=== PATIENT | male | born 1950 | race Caucasian/White ===

== ENCOUNTER 2025-04-06 15:49 | Inpatient (IN) | payer MEDICARE ==
[~2025-04-06 15:49] MED LIST: Iopamidol-370 76% 500 ML MDV (1 ML CHARGE) ONE
[2025-04-06 17:07] LABS: #Basophils Less than 0.03 10x3/uL (0.0-0.2); #Eosinophils 0.09 10x3/uL (0.0-0.7); #Monocytes 0.46 10x3/uL (0.11-0.59); #Neutrophils 7.12 10x3/uL (1.40-6.50); %Basophils 0.2 % (0.0-1.0); %Eosinophils 1.0 % (0.0-10.0); %Lymphocytes 14.7 % (21.0-51.0); %Monocytes 5.0 % (0.0-10.0); %Neutrophils 77.9 % (42.0-75.0); Hematocrit 38.2 % (42.0-52.0); Hemoglobin 12.3 g/dL (14.0-18.0); Mean Corpuscular Hemoglobin 28.5 pg (27.0-31.0); Mean Corpuscular Volume 88.6 fL (78.0-98.0); Platelet Count 157 10x3/uL (130-400); Red Blood Cell (RBC) Count 4.31 mill/uL (4.70-6.10); White Blood Cell (WBC) Count 9.14 10x3/uL (4.8-10.8)
[2025-04-06 17:15] LABS: Bacteria/HPF None Seen HPF (None Seen); CAUTI Indications for Culture Pelvic or flank pain; Glucose, Urine (Dipstick) Normal (Negative); Leukocyte Negative Leu/uL (Negative); Protein, Urine (Dipstick) Negative (Neg-Trace); RBC/HPF 0-3 HPF (0-3); Specific Gravity, Urine 1.033 (1.002-1.036); WBC/HPF 0-3 HPF (0-3)
[2025-04-06 17:17] LABS: Urine Culture Reflex No No
[2025-04-06 17:21] LABS: Cocaine Metabolite Screen Negative (Negative); THC/Cannabinoid Screen PRELIM POSITIVE (Negative); Tricyclic Screen Negative (Negative)
[2025-04-06 17:21] LABS: INR-International Normal Ratio 1.1; PTT 31.4 sec (22.9-36.1); Prothrombin Time 14.7 sec (12.0-14.7)
[2025-04-06] MEDS ORDERED: Glucagon 1 MG/ML KIT IM PRN (17:21)
[2025-04-06] MEDS ORDERED: Acetaminophen 325 MG TAB PO PRN (17:21)
[2025-04-06] MEDS ORDERED: Dextrose 50% Abboject 50 ML SYRINGE SLOW IVP PRN (17:21)
[2025-04-06] MEDS ORDERED: Ondansetron PF 4 MG/2 ML Vial ONE (17:29)
[2025-04-06] MEDS ORDERED: Rib Fracture Protocol PO SCH (17:30)
[2025-04-06 17:36] LABS: ALT (SGPT) 12 U/L (Less than 45); AST (SGOT) 35 U/L (11-34); Albumin 2.9 g/dL (3.1-4.5); Alkaline Phosphatase 70 U/L (40-110); Anion Gap 16 mmol/L (10-20); BUN (Urea Nitrogen) 24 mg/dL (8.4-25.7); Bilirubin, Total 0.4 mg/dL (0.3-1.2); Calc. Creatinine Clearance 0 mL/min (70-130); Calcium 8.5 mg/dL (7.8-10.44); Carbon Dioxide 19 mmol/L (23-31); Chloride 108 mmol/L (98-107); Globulin 3.3 g/dL (2.4-3.5); Glucose 129 mg/dL (83-110); Lipase 24 U/L (8-78); Potassium 4.7 mmol/L (3.5-5.1); Sodium 138 mmol/L (136-145)
[2025-04-06] MEDS: Acetaminophen 500 MG TAB PO SCH (19:35)
[2025-04-06] MEDS: Gabapentin 100 MG CAP PO SCH (20:54)
[2025-04-06] MEDS: Enoxaparin 40 MG (0.4 mL) SYRINGE SC SCH (20:54)
[2025-04-06] MEDS: Ibuprofen 200 MG TAB PO SCH (20:55)
[2025-04-07] MEDS: Famotidine 20 MG TAB PO SCH (01:33)
[2025-04-07 01:56] VITALS: BMI 25.7
[2025-04-07 05:15] LABS: #Basophils Less than 0.03 10x3/uL (0.0-0.2); #Eosinophils Less than 0.03 10x3/uL (0.0-0.7); #Monocytes 0.57 10x3/uL (0.11-0.59); #Neutrophils 5.40 10x3/uL (1.40-6.50); %Basophils 0.1 % (0.0-1.0); %Eosinophils 0.1 % (0.0-10.0); %Lymphocytes 10.0 % (21.0-51.0); %Monocytes 8.5 % (0.0-10.0); %Neutrophils 80.7 % (42.0-75.0); Hematocrit 36.2 % (42.0-52.0); Hemoglobin 11.6 g/dL (14.0-18.0); Mean Corpuscular Hemoglobin 29.0 pg (27.0-31.0); Mean Corpuscular Volume 90.5 fL (78.0-98.0); Platelet Count 145 10x3/uL (130-400); Red Blood Cell (RBC) Count 4.00 mill/uL (4.70-6.10); White Blood Cell (WBC) Count 6.70 10x3/uL (4.8-10.8)
[2025-04-07 05:29] LABS: Anion Gap 15 mmol/L (10-20); BUN (Urea Nitrogen) 24 mg/dL (8.4-25.7); Calc. Creatinine Clearance 54 mL/min (70-130); Calcium 8.4 mg/dL (7.8-10.44); Carbon Dioxide 17 mmol/L (23-31); Chloride 111 mmol/L (98-107); Glucose 167 mg/dL (83-110); Potassium 4.6 mmol/L (3.5-5.1); Sodium 138 mmol/L (136-145)
[2025-04-07] MEDS: Cyclobenzaprine 10 MG TAB PO PRN (08:53)
[2025-04-07] MEDS: Ondansetron PF 4 MG/2 ML Vial IVP PRN (10:33)
[2025-04-07] MEDS ORDERED: Iopamidol-370 76% 500 ML MDV (1 ML CHARGE) ONE (11:15)
[2025-04-07] MEDS ORDERED: Rocuronium Bromide 10 MG/ML (10ML VIAL) ONE (15:07)
[2025-04-07] MEDS ORDERED: Ondansetron PF 4 MG/2 ML Vial ONE (15:07)
[2025-04-07] MEDS ORDERED: CEFAZOLIN 2 GM VIAL ONE (15:14)
[2025-04-07] MEDS ORDERED: fentaNYL PF 100 MCG/2 ML SYRINGE ONE (15:54)
[2025-04-07] MEDS ORDERED: Etomidate 40 MG (20 mL) VIAL ONE (16:41)
[2025-04-07] MEDS ORDERED: Ketamine In 0.9 % NaCl 50 MG/5 ML SYRINGE ONE (16:41)
[2025-04-07] MEDS ORDERED: PHENYLEPHRINE-NS 100 MCG/ML 10 ML SYRINGE ONE (17:18)
[2025-04-07] MEDS ORDERED: Phenylephrine 40 MG/NS 250 ML 250 ML ONE (18:04)
[2025-04-07] MEDS ORDERED: SUGAMMADEX SODIUM 200 MG/2 ML VIAL ONE (20:14)
[2025-04-07] MEDS ORDERED: diphenhydrAMINE 50 MG/ML VIAL IM PRN (20:31)
[2025-04-07] MEDS ORDERED: Ondansetron PF 4 MG/2 ML Vial IVP PRN (20:31)
[2025-04-07] MEDS ORDERED: diphenhydrAMINE 25 MG CAP PO PRN (20:31)
[2025-04-07] MEDS ORDERED: diphenhydrAMINE 50 MG/ML VIAL IVP PRN (20:31)
[2025-04-07] MEDS ORDERED: fentaNYL Citrate/PF 55 ML IV SCH (20:45)
[2025-04-07] MEDS ORDERED: Communication Order-Pharmacy FS SCH (20:45)
[2025-04-08 04:50] LABS: #Basophils Less than 0.03 10x3/uL (0.0-0.2); #Eosinophils Less than 0.03 10x3/uL (0.0-0.7); #Monocytes 0.69 10x3/uL (0.11-0.59); #Neutrophils 6.14 10x3/uL (1.40-6.50); %Basophils 0.1 % (0.0-1.0); %Eosinophils 0.0 % (0.0-10.0); %Lymphocytes 6.9 % (21.0-51.0); %Monocytes 9.3 % (0.0-10.0); %Neutrophils 83.3 % (42.0-75.0); Hematocrit 34.0 % (42.0-52.0); Hemoglobin 10.5 g/dL (14.0-18.0); Mean Corpuscular Hemoglobin 28.8 pg (27.0-31.0); Mean Corpuscular Volume 93.2 fL (78.0-98.0); Platelet Count 123 10x3/uL (130-400); Red Blood Cell (RBC) Count 3.65 mill/uL (4.70-6.10); White Blood Cell (WBC) Count 7.38 10x3/uL (4.8-10.8)
[2025-04-08 05:03] LABS: Anion Gap 16 mmol/L (10-20); BUN (Urea Nitrogen) 24 mg/dL (8.4-25.7); Calc. Creatinine Clearance 45 mL/min (70-130); Calcium 8.3 mg/dL (7.8-10.44); Carbon Dioxide 15 mmol/L (23-31); Chloride 113 mmol/L (98-107); Glucose 143 mg/dL (83-110); Potassium 4.6 mmol/L (3.5-5.1); Sodium 139 mmol/L (136-145)
[2025-04-08 05:31] LABS: Platelet Adequacy Comment Platelets Decreased; RBC Morphology Within Normal Limits; Smudge Cells 5.9 %
[2025-04-08] MEDS ORDERED: Aspirin 81 mg Enteric Coated Tablet PO SCH (09:00)
[2025-04-08] MEDS: Lactulose 20 GM (30 mL) UDCUP PO SCH (09:49)
[2025-04-09 05:10] LABS: #Basophils Less than 0.03 10x3/uL (0.0-0.2); #Eosinophils 0.12 10x3/uL (0.0-0.7); #Monocytes 0.48 10x3/uL (0.11-0.59); #Neutrophils 2.06 10x3/uL (1.40-6.50); %Basophils 0.3 % (0.0-1.0); %Eosinophils 3.7 % (0.0-10.0); %Lymphocytes 16.2 % (21.0-51.0); %Monocytes 15.0 % (0.0-10.0); %Neutrophils 64.2 % (42.0-75.0); Hematocrit 25.7 % (42.0-52.0); Hemoglobin 7.8 g/dL (14.0-18.0); Mean Corpuscular Hemoglobin 28.4 pg (27.0-31.0); Mean Corpuscular Volume 93.5 fL (78.0-98.0); Platelet Count 94 10x3/uL (130-400); Red Blood Cell (RBC) Count 2.75 mill/uL (4.70-6.10); White Blood Cell (WBC) Count 3.21 10x3/uL (4.8-10.8)
[2025-04-09 05:30] LABS: Anion Gap 10 mmol/L (10-20); BUN (Urea Nitrogen) 21 mg/dL (8.4-25.7); Calc. Creatinine Clearance 51 mL/min (70-130); Calcium 7.9 mg/dL (7.8-10.44); Carbon Dioxide 18 mmol/L (23-31); Chloride 117 mmol/L (98-107); Glucose 86 mg/dL (83-110); Potassium 4.1 mmol/L (3.5-5.1); Sodium 141 mmol/L (136-145)
[2025-04-09] MEDS: PNEUMOC 20-VAL CONJ-DIP CRM/PF 0.5 ML SYRINGE IM ONE (08:27)
[2025-04-09] MEDS: TETANUS, DIPHTHERIA TOX,ADULT (TDVAX) 0.5 ML VIAL IM ONE (08:36)
[2025-04-09 12:42] LABS: #Basophils Less than 0.03 10x3/uL (0.0-0.2); #Eosinophils 0.18 10x3/uL (0.0-0.7); #Monocytes 0.47 10x3/uL (0.11-0.59); #Neutrophils 2.48 10x3/uL (1.40-6.50); %Basophils 0.5 % (0.0-1.0); %Eosinophils 4.9 % (0.0-10.0); %Lymphocytes 13.6 % (21.0-51.0); %Monocytes 12.8 % (0.0-10.0); %Neutrophils 67.7 % (42.0-75.0); Hematocrit 23.5 % (42.0-52.0); Hemoglobin 7.3 g/dL (14.0-18.0); Mean Corpuscular Hemoglobin 28.6 pg (27.0-31.0); Mean Corpuscular Volume 92.2 fL (78.0-98.0); Platelet Count 103 10x3/uL (130-400); Red Blood Cell (RBC) Count 2.55 mill/uL (4.70-6.10); White Blood Cell (WBC) Count 3.67 10x3/uL (4.8-10.8)
[2025-04-10 06:54] LABS: #Basophils Less than 0.03 10x3/uL (0.0-0.2); #Eosinophils 0.14 10x3/uL (0.0-0.7); #Monocytes 0.45 10x3/uL (0.11-0.59); #Neutrophils 3.72 10x3/uL (1.40-6.50); %Basophils 0.4 % (0.0-1.0); %Eosinophils 2.8 % (0.0-10.0); %Lymphocytes 13.6 % (21.0-51.0); %Monocytes 8.9 % (0.0-10.0); %Neutrophils 73.5 % (42.0-75.0); Hematocrit 25.1 % (42.0-52.0); Hemoglobin 7.7 g/dL (14.0-18.0); Mean Corpuscular Hemoglobin 28.4 pg (27.0-31.0); Mean Corpuscular Volume 92.6 fL (78.0-98.0); Platelet Count 138 10x3/uL (130-400); Red Blood Cell (RBC) Count 2.71 mill/uL (4.70-6.10); White Blood Cell (WBC) Count 5.06 10x3/uL (4.8-10.8)
[2025-04-10 07:05] LABS: Anion Gap 9 mmol/L (10-20); BUN (Urea Nitrogen) 16 mg/dL (8.4-25.7); Calc. Creatinine Clearance 64 mL/min (70-130); Calcium 8.0 mg/dL (7.8-10.44); Carbon Dioxide 17 mmol/L (23-31); Chloride 119 mmol/L (98-107); Glucose 88 mg/dL (83-110); Potassium 4.0 mmol/L (3.5-5.1); Sodium 141 mmol/L (136-145)
[2025-04-10] MEDS ORDERED: HYDROcodone/Acetaminophen 5/325 mg Tablet PO PRN (08:37)
[2025-04-10] MEDS ORDERED: Calcium Carbonate 500 MG ChewTAB PO PRN (08:49)
[2025-04-10] MEDS: Senokot S 8.6-50 MG TAB PO SCH (09:44)
[2025-04-10] MEDS: Pantoprazole 40 MG DR.TAB PO SCH (09:44)
[2025-04-10] MEDS ORDERED: Iopamidol-370 76% 500 ML MDV (1 ML CHARGE) ONE (11:51)
[2025-04-10] MEDS: Gabapentin 300 MG CAP PO SCH (14:31)
[2025-04-10] MEDS: Furosemide 20 MG (2 mL) VIAL SLOW IVP SCH (15:21)
[2025-04-10] MEDS: Lactulose 20 GM (30 mL) UDCUP PO SCH ×2 (15:21→20:49)
[2025-04-10] MEDS: Methocarbamol 500 MG TAB PO PRN (17:17)
[2025-04-10] MEDS: HYDROcodone/Acetaminophen 5/325 mg Tablet PO PRN (17:17)
[2025-04-11] MEDS: Transdermal Patch Removal LIDOCAINE TOP SCH (02:21)
[2025-04-11 06:56] LABS: #Basophils Less than 0.03 10x3/uL (0.0-0.2); #Eosinophils 0.08 10x3/uL (0.0-0.7); #Monocytes 0.44 10x3/uL (0.11-0.59); #Neutrophils 3.10 10x3/uL (1.40-6.50); %Basophils 0.5 % (0.0-1.0); %Eosinophils 1.8 % (0.0-10.0); %Lymphocytes 17.0 % (21.0-51.0); %Monocytes 10.0 % (0.0-10.0); %Neutrophils 70.0 % (42.0-75.0); Hematocrit 21.8 % (42.0-52.0); Hemoglobin 7.1 g/dL (14.0-18.0); Mean Corpuscular Hemoglobin 29.0 pg (27.0-31.0); Mean Corpuscular Volume 89.0 fL (78.0-98.0); Platelet Count 153 10x3/uL (130-400); Red Blood Cell (RBC) Count 2.45 mill/uL (4.70-6.10); White Blood Cell (WBC) Count 4.42 10x3/uL (4.8-10.8)
[2025-04-11 07:12] LABS: Anion Gap 16 mmol/L (10-20); BUN (Urea Nitrogen) 22 mg/dL (8.4-25.7); Calc. Creatinine Clearance 42 mL/min (70-130); Calcium 8.5 mg/dL (7.8-10.44); Carbon Dioxide 15 mmol/L (23-31); Chloride 116 mmol/L (98-107); Glucose 117 mg/dL (83-110); Magnesium 1.9 mg/dL (1.6-2.6); Potassium 3.9 mmol/L (3.5-5.1); Sodium 143 mmol/L (136-145)
[2025-04-11] MEDS: Furosemide 20 MG (2 mL) VIAL SLOW IVP SCH (08:20)
[2025-04-11 11:28] LABS: #Basophils 0.03 10x3/uL (0.0-0.2); #Eosinophils 0.12 10x3/uL (0.0-0.7); #Monocytes 0.39 10x3/uL (0.11-0.59); #Neutrophils 3.42 10x3/uL (1.40-6.50); %Basophils 0.7 % (0.0-1.0); %Eosinophils 2.6 % (0.0-10.0); %Lymphocytes 13.2 % (21.0-51.0); %Monocytes 8.5 % (0.0-10.0); %Neutrophils 74.1 % (42.0-75.0); Hematocrit 21.9 % (42.0-52.0); Hemoglobin 7.1 g/dL (14.0-18.0); Mean Corpuscular Hemoglobin 29.0 pg (27.0-31.0); Mean Corpuscular Volume 89.4 fL (78.0-98.0); Platelet Count 173 10x3/uL (130-400); Red Blood Cell (RBC) Count 2.45 mill/uL (4.70-6.10); White Blood Cell (WBC) Count 4.61 10x3/uL (4.8-10.8)
[2025-04-11] MEDS ORDERED: Furosemide 20 MG (2 mL) VIAL SLOW IVP SCH (14:00)
[2025-04-11 19:55] LABS: Hematocrit 26.7 % (42.0-52.0); Hemoglobin 8.4 g/dL (14.0-18.0)
[2025-04-12 03:53] LABS: #Basophils Less than 0.03 10x3/uL (0.0-0.2); #Eosinophils 0.30 10x3/uL (0.0-0.7); #Monocytes 0.40 10x3/uL (0.11-0.59); #Neutrophils 2.37 10x3/uL (1.40-6.50); %Basophils 0.5 % (0.0-1.0); %Eosinophils 7.8 % (0.0-10.0); %Lymphocytes 16.7 % (21.0-51.0); %Monocytes 10.4 % (0.0-10.0); %Neutrophils 61.7 % (42.0-75.0); Hematocrit 24.4 % (42.0-52.0); Hemoglobin 8.0 g/dL (14.0-18.0); Mean Corpuscular Hemoglobin 28.8 pg (27.0-31.0); Mean Corpuscular Volume 87.8 fL (78.0-98.0); Platelet Count 177 10x3/uL (130-400); Red Blood Cell (RBC) Count 2.78 mill/uL (4.70-6.10); White Blood Cell (WBC) Count 3.84 10x3/uL (4.8-10.8)
[2025-04-12 04:14] LABS: Anion Gap 11 mmol/L (10-20); BUN (Urea Nitrogen) 18 mg/dL (8.4-25.7); Calc. Creatinine Clearance 53 mL/min (70-130); Calcium 8.3 mg/dL (7.8-10.44); Carbon Dioxide 18 mmol/L (23-31); Chloride 114 mmol/L (98-107); Glucose 109 mg/dL (83-110); Potassium 3.7 mmol/L (3.5-5.1); Sodium 139 mmol/L (136-145)
[2025-04-12] MEDS: Heparin 5,000 UNITS/ML VIAL SC SCH (09:36)
[2025-04-13 05:24] LABS: #Basophils Less than 0.03 10x3/uL (0.0-0.2); #Eosinophils 0.22 10x3/uL (0.0-0.7); #Monocytes 0.48 10x3/uL (0.11-0.59); #Neutrophils 2.76 10x3/uL (1.40-6.50); %Basophils 0.5 % (0.0-1.0); %Eosinophils 5.1 % (0.0-10.0); %Lymphocytes 14.9 % (21.0-51.0); %Monocytes 11.2 % (0.0-10.0); %Neutrophils 64.1 % (42.0-75.0); Hematocrit 23.9 % (42.0-52.0); Hemoglobin 7.9 g/dL (14.0-18.0); Mean Corpuscular Hemoglobin 28.9 pg (27.0-31.0); Mean Corpuscular Volume 87.5 fL (78.0-98.0); Platelet Count 205 10x3/uL (130-400); Red Blood Cell (RBC) Count 2.73 mill/uL (4.70-6.10); White Blood Cell (WBC) Count 4.30 10x3/uL (4.8-10.8)
[2025-04-13 05:34] LABS: Anion Gap 12 mmol/L (10-20); BUN (Urea Nitrogen) 17 mg/dL (8.4-25.7); Calc. Creatinine Clearance 65 mL/min (70-130); Calcium 8.2 mg/dL (7.8-10.44); Carbon Dioxide 17 mmol/L (23-31); Chloride 113 mmol/L (98-107); Glucose 104 mg/dL (83-110); Potassium 3.7 mmol/L (3.5-5.1); Sodium 138 mmol/L (136-145)
[2025-04-13 14:02] VITALS: BMI 28.8
[2025-04-13 16:49] VITALS: BP 157/89; TEMP 98.1
== END 2025-04-13 18:20 | DRG 492 ==
LOC: ERS 15:49 → SURG A 17:27
PROVIDERS: ADMIT Colon & Rectal Surgery; ATTEND Colon & Rectal Surgery
PROC: 0QSK04Z Reposition Left Fibula with Internal Fixation Device, Open Approach (ICD-10-PCS; principal; 2025-04-08)
PROC: 0SRS0JZ Replacement of Left Hip Joint, Femoral Surface with Synthetic Substitute, Open Approach (ICD-10-PCS; 2025-04-08)
PROC: 0QS7XZZ Reposition Left Upper Femur, External Approach (ICD-10-PCS; 2025-04-08)
PROC: 30233N1 Transfusion of Nonautologous Red Blood Cells into Peripheral Vein, Percutaneous Approach (ICD-10-PCS; 2025-04-08)
DX: S82.842A Displaced bimalleolar fracture of left lower leg, initial encounter for closed fracture (principal); J96.01 Acute respiratory failure with hypoxia; S72.092A Other fracture of head and neck of left femur, initial encounter for closed fracture; S22.42XA Multiple fractures of ribs, left side, initial encounter for closed fracture; S22.040A Wedge compression fracture of fourth thoracic vertebra, initial encounter for closed fracture; S22.050A Wedge compression fracture of T5-T6 vertebra, initial encounter for closed fracture; S22.060A Wedge compression fracture of T7-T8 vertebra, initial encounter for closed fracture; D62 Acute posthemorrhagic anemia; K59.00 Constipation, unspecified; E27.9 Disorder of adrenal gland, unspecified; N28.9 Disorder of kidney and ureter, unspecified; F12.90 Cannabis use, unspecified, uncomplicated; V89.0XXA Person injured in unspecified motor-vehicle accident, nontraffic, initial encounter; S62.292A Other fracture of first metacarpal bone, left hand, initial encounter for closed fracture; I77.1 Stricture of artery; I10 Essential (primary) hypertension
CPT/HCPCS: 27762; 27788; 27810; 36415; 36430; 51701; 70450; 71045; 71260; 71275; 72125; 72170; 74177; 75635; 80048; 80053; 80306; 80307; 81001; 83036; 83690; 83735; 83880; 85025; 85610; 85730; 86850; 86900; 86901; 90471; 90715; 93005; 93306; 94640; 94760; 96374; 96375; 99292; C1713; C1776; G0390; J1100; J1644; J1650; J1940; J2270; J2405; J3490; J7030; P9016; Q9967

== ENCOUNTER 2025-05-17 18:16 | Inpatient (IN) | payer MEDICARE ==
[2025-05-17 19:16] LABS: #Basophils Less than 0.03 10x3/uL (0.0-0.2); #Eosinophils Less than 0.03 10x3/uL (0.0-0.7); #Monocytes 0.67 10x3/uL (0.11-0.59); #Neutrophils 8.89 10x3/uL (1.40-6.50); %Basophils 0.2 % (0.0-1.0); %Eosinophils 0.1 % (0.0-10.0); %Lymphocytes 14.0 % (21.0-51.0); %Monocytes 6.0 % (0.0-10.0); %Neutrophils 79.2 % (42.0-75.0); Hematocrit 33.5 % (42.0-52.0); Hemoglobin 10.9 g/dL (14.0-18.0); Mean Corpuscular Hemoglobin 28.4 pg (27.0-31.0); Mean Corpuscular Volume 87.2 fL (78.0-98.0); Platelet Count 185 10x3/uL (130-400); Red Blood Cell (RBC) Count 3.84 mill/uL (4.70-6.10); White Blood Cell (WBC) Count 11.22 10x3/uL (4.8-10.8)
[2025-05-17 19:56] LABS: ALT (SGPT) 16 U/L (Less than 45); AST (SGOT) 28 U/L (11-34); Albumin 2.9 g/dL (3.1-4.5); Alkaline Phosphatase 113 U/L (40-110); Anion Gap 17 mmol/L (10-20); BUN (Urea Nitrogen) 37 mg/dL (8.4-25.7); Bilirubin, Total 0.5 mg/dL (0.3-1.2); Calc. Creatinine Clearance 0 mL/min (70-130); Calcium 9.8 mg/dL (7.8-10.44); Carbon Dioxide 24 mmol/L (23-31); Chloride 99 mmol/L (98-107); Globulin 3.8 g/dL (2.4-3.5); Glucose 112 mg/dL (83-110); Potassium 4.6 mmol/L (3.5-5.1); Sodium 135 mmol/L (136-145)
[2025-05-17] MEDS ORDERED: Cefepime 2 GM VIAL ONE (20:06)
[2025-05-17] MEDS ORDERED: Ondansetron PF 4 MG/2 ML Vial ONE (20:06)
[2025-05-18 00:16] VITALS: BMI 27.4
[2025-05-18] MEDS ORDERED: Ondansetron PF 4 MG/2 ML Vial IVP PRN (01:00)
[2025-05-18] MEDS ORDERED: Bisacodyl 10 MG SUPP PR PRN (01:06)
[2025-05-18] MEDS ORDERED: Melatonin 3 MG TAB PO PRN (01:06)
[2025-05-18] MEDS ORDERED: Guaifenesin DM 100-10/5 ML UDCUP PO PRN (01:06)
[2025-05-18] MEDS ORDERED: Senokot S 8.6-50 MG TAB PO PRN (01:06)
[2025-05-18] MEDS ORDERED: Electrolyte Replacement Protocol 1 EACH FS SCH (01:15)
[2025-05-18] MEDS ORDERED: PHOS-NAK 1 PKT PACK PO PRN (01:30)
[2025-05-18] MEDS ORDERED: Potassium Chloride 20 MEQ in Premix 1 BAG IVPB PRN (01:30)
[2025-05-18] MEDS: cefTRIAXone\\ROCEPHIN 1 GM in Sodium Chloride 0.9% 100 ML IVPB SCH (05:07)
[2025-05-18 05:13] LABS: #Basophils Less than 0.03 10x3/uL (0.0-0.2); #Eosinophils Less than 0.03 10x3/uL (0.0-0.7); #Monocytes 0.50 10x3/uL (0.11-0.59); #Neutrophils 4.55 10x3/uL (1.40-6.50); %Basophils 0.2 % (0.0-1.0); %Eosinophils 0.2 % (0.0-10.0); %Lymphocytes 9.4 % (21.0-51.0); %Monocytes 8.9 % (0.0-10.0); %Neutrophils 80.8 % (42.0-75.0); Hematocrit 26.2 % (42.0-52.0); Hemoglobin 8.2 g/dL (14.0-18.0); Mean Corpuscular Hemoglobin 28.4 pg (27.0-31.0); Mean Corpuscular Volume 90.7 fL (78.0-98.0); Platelet Count 126 10x3/uL (130-400); Red Blood Cell (RBC) Count 2.89 mill/uL (4.70-6.10); White Blood Cell (WBC) Count 5.63 10x3/uL (4.8-10.8)
[2025-05-18] MEDS: Acetaminophen 325 MG TAB PO PRN (05:43)
[2025-05-18 06:00] LABS: ALT (SGPT) 11 U/L (Less than 45); AST (SGOT) 19 U/L (11-34); Albumin 2.1 g/dL (3.1-4.5); Alkaline Phosphatase 80 U/L (40-110); Anion Gap 8 mmol/L (10-20); BUN (Urea Nitrogen) 37 mg/dL (8.4-25.7); Bilirubin, Total 0.3 mg/dL (0.3-1.2); Calc. Creatinine Clearance 30 mL/min (70-130); Calcium 8.3 mg/dL (7.8-10.44); Carbon Dioxide 20 mmol/L (23-31); Chloride 110 mmol/L (98-107); Globulin 2.9 g/dL (2.4-3.5); Glucose 119 mg/dL (83-110); Magnesium 1.7 mg/dL (1.6-2.6); Potassium 4.3 mmol/L (3.5-5.1); Sodium 134 mmol/L (136-145)
[2025-05-18] MEDS: Azithromycin 250 MG TAB PO SCH (08:24)
[2025-05-18] MEDS: Heparin 5,000 UNITS/ML VIAL SC SCH (08:24)
[2025-05-18] MEDS ORDERED: Enoxaparin 40 MG (0.4 mL) SYRINGE SC SCH (09:00)
[2025-05-18] MEDS ORDERED: FLU (Fluad Triv) 25-26 (65UP)PF 45 MCG/0.5 ML Syringe IM ONE (09:00)
[2025-05-18] MEDS ORDERED: PNEUMOC 20-VAL CONJ-DIP CRM/PF 0.5 ML SYRINGE IM ONE (09:00)
[2025-05-18] MEDS ORDERED: HYDROcodone/Acetaminophen 10/325 mg Tablet PO PRN (14:27)
[2025-05-18] MEDS: HYDROcodone/Acetaminophen 5/325 mg Tablet PO PRN (15:17)
[2025-05-18] MEDS ORDERED: Methocarbamol 500 MG TAB PO PRN (15:57)
[2025-05-18] MEDS: Gabapentin 300 MG CAP PO SCH (21:03)
[2025-05-18] MEDS: VANCOMYCIN 1.75 GM/350 ML Premix BAG IVPB SCH (23:48)
[2025-05-19 04:58] LABS: Anion Gap 10 mmol/L (10-20); BUN (Urea Nitrogen) 32 mg/dL (8.4-25.7); Calc. Creatinine Clearance 34 mL/min (70-130); Calcium 8.1 mg/dL (7.8-10.44); Carbon Dioxide 16 mmol/L (23-31); Chloride 112 mmol/L (98-107); Glucose 82 mg/dL (83-110); Potassium 4.1 mmol/L (3.5-5.1); Sodium 134 mmol/L (136-145)
[2025-05-19 08:19] LABS: #Basophils Less than 0.03 10x3/uL (0.0-0.2); #Eosinophils 0.06 10x3/uL (0.0-0.7); #Monocytes 0.28 10x3/uL (0.11-0.59); #Neutrophils 2.30 10x3/uL (1.40-6.50); %Basophils 0.3 % (0.0-1.0); %Eosinophils 1.9 % (0.0-10.0); %Lymphocytes 17.3 % (21.0-51.0); %Monocytes 8.6 % (0.0-10.0); %Neutrophils 71.0 % (42.0-75.0); Hematocrit 25.7 % (42.0-52.0); Hemoglobin 8.1 g/dL (14.0-18.0); Mean Corpuscular Hemoglobin 28.4 pg (27.0-31.0); Mean Corpuscular Volume 90.2 fL (78.0-98.0); Platelet Count 128 10x3/uL (130-400); Red Blood Cell (RBC) Count 2.85 mill/uL (4.70-6.10); White Blood Cell (WBC) Count 3.24 10x3/uL (4.8-10.8)
[2025-05-19 15:55] LABS: Legionella Urinary Ag Negative (Negative)
[2025-05-20 04:43] LABS: #Basophils 0.03 10x3/uL (0.0-0.2); #Eosinophils 0.14 10x3/uL (0.0-0.7); #Monocytes 0.42 10x3/uL (0.11-0.59); #Neutrophils 2.36 10x3/uL (1.40-6.50); %Basophils 0.7 % (0.0-1.0); %Eosinophils 3.3 % (0.0-10.0); %Lymphocytes 28.9 % (21.0-51.0); %Monocytes 10.0 % (0.0-10.0); %Neutrophils 56.4 % (42.0-75.0); Hematocrit 29.0 % (42.0-52.0); Hemoglobin 8.7 g/dL (14.0-18.0); Mean Corpuscular Hemoglobin 27.8 pg (27.0-31.0); Mean Corpuscular Volume 92.7 fL (78.0-98.0); Platelet Count 150 10x3/uL (130-400); Red Blood Cell (RBC) Count 3.13 mill/uL (4.70-6.10); White Blood Cell (WBC) Count 4.19 10x3/uL (4.8-10.8)
[2025-05-20 05:09] LABS: Anion Gap 11 mmol/L (10-20); BUN (Urea Nitrogen) 27 mg/dL (8.4-25.7); Calc. Creatinine Clearance 37 mL/min (70-130); Calcium 8.2 mg/dL (7.8-10.44); Carbon Dioxide 18 mmol/L (23-31); Chloride 110 mmol/L (98-107); Glucose 94 mg/dL (83-110); Potassium 4.2 mmol/L (3.5-5.1); Sodium 135 mmol/L (136-145)
[2025-05-20] MEDS: Acetaminophen 500 MG TAB PO PRN (22:17)
[2025-05-21 05:00] LABS: #Basophils 0.03 10x3/uL (0.0-0.2); #Eosinophils 0.29 10x3/uL (0.0-0.7); #Monocytes 0.51 10x3/uL (0.11-0.59); #Neutrophils 2.62 10x3/uL (1.40-6.50); %Basophils 0.7 % (0.0-1.0); %Eosinophils 6.3 % (0.0-10.0); %Lymphocytes 23.9 % (21.0-51.0); %Monocytes 11.1 % (0.0-10.0); %Neutrophils 56.9 % (42.0-75.0); Hematocrit 30.1 % (42.0-52.0); Hemoglobin 9.4 g/dL (14.0-18.0); Mean Corpuscular Hemoglobin 28.3 pg (27.0-31.0); Mean Corpuscular Volume 90.7 fL (78.0-98.0); Platelet Count 158 10x3/uL (130-400); Red Blood Cell (RBC) Count 3.32 mill/uL (4.70-6.10); White Blood Cell (WBC) Count 4.60 10x3/uL (4.8-10.8)
[2025-05-21 05:17] LABS: Anion Gap 13 mmol/L (10-20); BUN (Urea Nitrogen) 22 mg/dL (8.4-25.7); Calc. Creatinine Clearance 44 mL/min (70-130); Calcium 8.7 mg/dL (7.8-10.44); Carbon Dioxide 16 mmol/L (23-31); Chloride 111 mmol/L (98-107); Glucose 91 mg/dL (83-110); Potassium 4.4 mmol/L (3.5-5.1); Sodium 136 mmol/L (136-145)
[2025-05-22 05:13] LABS: #Basophils Less than 0.03 10x3/uL (0.0-0.2); #Eosinophils 0.24 10x3/uL (0.0-0.7); #Monocytes 0.43 10x3/uL (0.11-0.59); #Neutrophils 2.35 10x3/uL (1.40-6.50); %Basophils 0.5 % (0.0-1.0); %Eosinophils 5.6 % (0.0-10.0); %Lymphocytes 27.8 % (21.0-51.0); %Monocytes 10.1 % (0.0-10.0); %Neutrophils 55.3 % (42.0-75.0); Hematocrit 27.6 % (42.0-52.0); Hemoglobin 8.5 g/dL (14.0-18.0); Mean Corpuscular Hemoglobin 27.8 pg (27.0-31.0); Mean Corpuscular Volume 90.2 fL (78.0-98.0); Platelet Count 184 10x3/uL (130-400); Red Blood Cell (RBC) Count 3.06 mill/uL (4.70-6.10); White Blood Cell (WBC) Count 4.25 10x3/uL (4.8-10.8)
[2025-05-22 05:36] LABS: ALT (SGPT) 11 U/L (Less than 45); AST (SGOT) 17 U/L (11-34); Albumin 1.9 g/dL (3.1-4.5); Alkaline Phosphatase 73 U/L (40-110); Anion Gap 6 mmol/L (10-20); BUN (Urea Nitrogen) 15 mg/dL (8.4-25.7); Bilirubin, Total 0.2 mg/dL (0.3-1.2); Calc. Creatinine Clearance 48 mL/min (70-130); Calcium 8.2 mg/dL (7.8-10.44); Carbon Dioxide 19 mmol/L (23-31); Chloride 117 mmol/L (98-107); Globulin 2.9 g/dL (2.4-3.5); Glucose 97 mg/dL (83-110); Magnesium 1.6 mg/dL (1.6-2.6); Potassium 4.1 mmol/L (3.5-5.1); Sodium 138 mmol/L (136-145)
[2025-05-23 04:39] LABS: #Basophils Less than 0.03 10x3/uL (0.0-0.2); #Eosinophils 0.24 10x3/uL (0.0-0.7); #Monocytes 0.37 10x3/uL (0.11-0.59); #Neutrophils 1.87 10x3/uL (1.40-6.50); %Basophils 0.5 % (0.0-1.0); %Eosinophils 6.3 % (0.0-10.0); %Lymphocytes 33.9 % (21.0-51.0); %Monocytes 9.6 % (0.0-10.0); %Neutrophils 48.7 % (42.0-75.0); Hematocrit 28.1 % (42.0-52.0); Hemoglobin 8.8 g/dL (14.0-18.0); Mean Corpuscular Hemoglobin 27.9 pg (27.0-31.0); Mean Corpuscular Volume 89.2 fL (78.0-98.0); Platelet Count 224 10x3/uL (130-400); Red Blood Cell (RBC) Count 3.15 mill/uL (4.70-6.10); White Blood Cell (WBC) Count 3.84 10x3/uL (4.8-10.8)
[2025-05-23 05:01] LABS: ALT (SGPT) 11 U/L (Less than 45); AST (SGOT) 17 U/L (11-34); Albumin 1.9 g/dL (3.1-4.5); Alkaline Phosphatase 73 U/L (40-110); Anion Gap 12 mmol/L (10-20); BUN (Urea Nitrogen) 14 mg/dL (8.4-25.7); Bilirubin, Total 0.2 mg/dL (0.3-1.2); Calc. Creatinine Clearance 53 mL/min (70-130); Calcium 8.1 mg/dL (7.8-10.44); Carbon Dioxide 18 mmol/L (23-31); Chloride 114 mmol/L (98-107); Globulin 2.9 g/dL (2.4-3.5); Glucose 89 mg/dL (83-110); Magnesium 1.6 mg/dL (1.6-2.6); Potassium 4.1 mmol/L (3.5-5.1); Sodium 140 mmol/L (136-145)
[2025-05-23 23:44] VITALS: BMI 27.4
[2025-05-24 04:31] LABS: #Basophils Less than 0.03 10x3/uL (0.0-0.2); #Eosinophils 0.17 10x3/uL (0.0-0.7); #Monocytes 0.34 10x3/uL (0.11-0.59); #Neutrophils 2.16 10x3/uL (1.40-6.50); %Basophils 0.3 % (0.0-1.0); %Eosinophils 4.3 % (0.0-10.0); %Lymphocytes 30.8 % (21.0-51.0); %Monocytes 8.7 % (0.0-10.0); %Neutrophils 54.9 % (42.0-75.0); Hematocrit 28.4 % (42.0-52.0); Hemoglobin 8.9 g/dL (14.0-18.0); Mean Corpuscular Hemoglobin 27.9 pg (27.0-31.0); Mean Corpuscular Volume 89.0 fL (78.0-98.0); Platelet Count 257 10x3/uL (130-400); Red Blood Cell (RBC) Count 3.19 mill/uL (4.70-6.10); White Blood Cell (WBC) Count 3.93 10x3/uL (4.8-10.8)
[2025-05-24 08:21] LABS: Anion Gap 9 mmol/L (10-20); BUN (Urea Nitrogen) 12 mg/dL (8.4-25.7); Calc. Creatinine Clearance 54 mL/min (70-130); Calcium 8.2 mg/dL (7.8-10.44); Carbon Dioxide 22 mmol/L (23-31); Chloride 113 mmol/L (98-107); Glucose 98 mg/dL (83-110); Magnesium 1.5 mg/dL (1.6-2.6); Potassium 4.3 mmol/L (3.5-5.1); Sodium 140 mmol/L (136-145)
[2025-05-24] MEDS: Magnesium Sulfate In Water 4 GM in Premix 1 BAG IVPB PRN (09:36)
[2025-05-25 07:33] LABS: Anion Gap 11 mmol/L (10-20); BUN (Urea Nitrogen) 11 mg/dL (8.4-25.7); Calc. Creatinine Clearance 57 mL/min (70-130); Calcium 7.8 mg/dL (7.8-10.44); Carbon Dioxide 21 mmol/L (23-31); Chloride 113 mmol/L (98-107); Glucose 96 mg/dL (83-110); Magnesium 1.9 mg/dL (1.6-2.6); Potassium 4.3 mmol/L (3.5-5.1); Sodium 141 mmol/L (136-145)
[2025-05-26 07:32] VITALS: TEMP 98.3
[2025-05-26 10:54] VITALS: BP 143/83
== END 2025-05-26 12:10 | disposition home or self-care (01) | DRG 871 ==
LOC: ERS 18:16 → 2NO 22:41
PROVIDERS: ADMIT Internal Medicine; ATTEND Internal Medicine
PROC: 3E03329 Introduction of Other Anti-infective into Peripheral Vein, Percutaneous Approach (ICD-10-PCS; principal; 2025-05-18)
PROC: 3E02340 Introduction of Influenza Vaccine into Muscle, Percutaneous Approach (ICD-10-PCS; 2025-05-18)
PROC: 3E0234Z Introduction of Serum, Toxoid and Vaccine into Muscle, Percutaneous Approach (ICD-10-PCS; 2025-05-18)
PROC: 0T9B70Z Drainage of Bladder with Drainage Device, Via Natural or Artificial Opening (ICD-10-PCS; 2025-05-18)
DX: A41.9 Sepsis, unspecified organism (principal); J18.9 Pneumonia, unspecified organism; J96.01 Acute respiratory failure with hypoxia; S22.41XA Multiple fractures of ribs, right side, initial encounter for closed fracture; N17.9 Acute kidney failure, unspecified; E87.20 Acidosis, unspecified; R65.20 Severe sepsis without septic shock; E78.5 Hyperlipidemia, unspecified; R33.8 Other retention of urine; N40.1 Benign prostatic hyperplasia with lower urinary tract symptoms; F12.10 Cannabis abuse, uncomplicated; I12.9 Hypertensive chronic kidney disease with stage 1 through stage 4 chronic kidney disease, or unspecified chronic kidney disease; N18.30 Chronic kidney disease, stage 3 unspecified; Z96.643 Presence of artificial hip joint, bilateral; Z95.0 Presence of cardiac pacemaker; Z98.890 Other specified postprocedural states; Z79.899 Other long term (current) drug therapy; Z79.2 Long term (current) use of antibiotics; Z79.891 Long term (current) use of opiate analgesic; Z23 Encounter for immunization
CPT/HCPCS: 36415; 71045; 71250; 74177; 80048; 80053; 83605; 83735; 84100; 84484; 85025; 87040; 87428; 87449; 93005; 93010; 94760; 96365; 96366; 96367; 96375; J0692; J0696; J1644; J2405; J3375; J3475; J7030